=== PATIENT | male | born 2005 | race Hispanic/Latino ===

== ENCOUNTER 2025-10-08 23:32 | Emergency (ER) | payer OTHER ==
[~2025-10-08] VITALS: Ht 188 cm; Wt 131.4 kg
[2025-10-09 00:34] LABS: PLATELET COUNT, AUTOMATED 432 10^3/uL (150-450)
[2025-10-09 00:54] LABS: ALT/SGPT 341 U/L (7.0-40); AST/SGOT 95 U/L (<34); CALCIUM LEVEL 8.6 MG/DL (8.5-10.1); CARBON DIOXIDE LEVEL 22 MMOL/L (20-31); CHLORIDE LEVEL 109 MMOL/L (98-107); CREATININE FOR GFR 0.75 MG/DL (0.70-1.30); GLOMERULAR FILTRATION RATE > 90.0 (>60); POTASSIUM SERUM 4.2 MMOL/L (3.5-5.1); SALICYLATE LEVEL < 3.0 MG/DL (<30); SODIUM LEVEL 146 MMOL/L (136-145)
[2025-10-09 01:22] LABS: ETHYL ALCOHOL (ETHANOL) 0.433 % (0.000-0.010)
[2025-10-09 08:51] VITALS: BP 126/60; TEMP 98.7; O2SAT 95
[2025-10-09] MEDS ORDERED: IBUP200T46 PO (11:44)
[2025-10-09] MEDS ORDERED: HOME MED LIST COMPLETE! XX SCH (11:45)
[2025-10-09 13:05] LABS: AMPHETAMINES LEVEL URINE NEGATIVE (NEGATIVE); BARBITURATES URINE NEGATIVE (NEGATIVE); BENZODIAZEPINES URINE NEGATIVE (NEGATIVE); COCAINE METABOLITE URINE NEGATIVE (NEGATIVE); METHADONE URINE NEGATIVE (NEGATIVE); OPIATES URINE NEGATIVE (NEGATIVE); PHENCYCLIDINE URINE NEGATIVE (NEGATIVE)
[2025-10-09 13:06] LABS: CANNABINOIDS URINE NEGATIVE (NEGATIVE)
== END 2025-10-09 17:38 | disposition home or self-care (01) ==
LOC: M ED 23:32
DX: F43.20 Adjustment disorder, unspecified (principal); F10.129 Alcohol abuse with intoxication, unspecified; Y90.8 Blood alcohol level of 240 mg/100 ml or more